=== PATIENT | female | born 1965 | race Caucasian/White ===

== ENCOUNTER 2016-11-04 08:34 | Emergency (ER) | payer OTHER ==
[~2016-11-04] VITALS: Ht 167.6 cm; Wt 65.8 kg
[2016-11-04] MEDS: IBUPROFEN 600 MG TABLET PO ONE (08:47)
--- NOTE | 2016-11-04 08:48 | NUR ---
Patient discharged to home in stable conditon. Written and verbal after care instructions given. Patient verbalizes understanding of instructions.pt walks in steady gait
[2016-11-04] MEDS ORDERED: IBUPROFEN 600 MG TABLET ONE (08:56)
== END 2016-11-04 08:54 | disposition home or self-care (01) ==
LOC: ER 08:34
DX: S80.12XA Contusion of left lower leg, initial encounter (principal); V49.9XXA Car occupant (driver) (passenger) injured in unspecified traffic accident, initial encounter; W22.10XA Striking against or struck by unspecified automobile airbag, initial encounter; Y93.89 Activity, other specified; Y92.89 Other specified places as the place of occurrence of the external cause; Y99.8 Other external cause status
CPT/HCPCS: A4663